=== PATIENT | female | born 1960 | race Caucasian/White ===

== ENCOUNTER 2023-12-08 17:51 | Inpatient (IN) | payer BC ==
[~2023-12-08] VITALS: Ht 165.1 cm; Wt 74.4 kg
[2023-12-08] MEDS: MORPHINE SULFATE 4 MG/ML INJ (FOR IV/IM USE) IV STA (19:27)
[2023-12-08 19:44] LABS: EOSINOPHILS % 1.6 % (0.0-5.0); HEMATOCRIT. 38.6 % (36.0-48.0); HEMOGLOBIN. 13.1 g/dL (12.0-16.0); LYMPHOCYTES % 30.7 % (20.0-50.0); MEAN CORPUSCULAR VOLUME 85.3 fL (81.0-99.0); MEAN PLATELET VOLUME 8.5 fl (7.4-10.4); MONOCYTES % 8.4 % (2.0-8.0); NEUTROPHILS % 58.3 % (40.0-76.0); PLATELET 214 x1000/uL (130-400); RED BLOOD CELL COUNT 4.52 mill/uL (4.2-5.4); WHITE BLOOD COUNT 6.4 x1000/uL (4.5-11.0)
[2023-12-08 19:49] LABS: CHLORIDE 102 mEq/L (98-107); POTASSIUM 3.6 mEq/L (3.5-5.1); SODIUM 138 mEq/L (136-145)
[2023-12-08 19:50] LABS: CALCIUM 10.7 mg/dL (8.7-10.4); CARBON DIOXIDE 23 mEq/L (21-32)
[2023-12-08 19:55] LABS: CREATININE 0.7 mg/dL (0.6-1.0); GLUCOSE 125 mg/dL (70-105); UREA NITROGEN BLOOD 13 mg/dL (9-23)
[2023-12-08 19:57] LABS: ALANINE AMINOTRANSFERASE 52 IU/L (10-49); ALBUMIN 4.9 g/dL (3.2-4.8); ASPARTATE AMINOTRANSFERASE 37 IU/L (<34); BILIRUBIN DIRECT 0.1 mg/dL (<=3.0); BILIRUBIN TOTAL 0.5 mg/dL (0.1-1.0)
[2023-12-08] MEDS: MORPHINE SULFATE 4 MG/ML INJ (FOR IV/IM USE) IV ONE (20:15)
[2023-12-08 20:29] LABS: TROPONIN I HIGH SENSITIVITY 56 ng/L (3.0-34)
[2023-12-08] MEDS: ASPIRIN 325MG TABLET PO ONE (21:00)
[2023-12-08] MEDS: IOHEXOL-300 100 ML BOTTLE ONE (21:06)
[2023-12-09 00:01] VITALS: BP 148/77; PULSE 81; RESP 18; RESP 20; TEMP 98.2
[2023-12-09] MEDS ORDERED: CLONIDINE 0.1MG TABLET PO PRN (01:45)
[2023-12-09] MEDS ORDERED: GUAIFENESIN 200MG/10ML SUGAR FREE UDC PO PRN (01:45)
[2023-12-09] MEDS ORDERED: IPRATROPIUM/ALBUTEROL 0.5-3(2.5)MG/3ML NEB HHN PRN (01:45)
[2023-12-09] MEDS ORDERED: MAGNESIUM/ALUMINUM HYDROXIDE/SIMETHICONE 30ML UDC PO PRN (01:45)
[2023-12-09] MEDS ORDERED: DEXTROSE 50% WATER 50ML SYRINGE IV PRN (01:45)
[2023-12-09] MEDS ORDERED: DOCUSATE SODIUM 100MG CAPSULE PO PRN (01:45)
[2023-12-09] MEDS ORDERED: ONDANSETRON HCL 4MG/2ML INJ IV PRN (01:45)
[2023-12-09] MEDS: BLOOD SUGAR DIAGNOSTIC STRIP TEST SCH (06:15)
[2023-12-09] MEDS: INSULIN LISPRO 100 UNITS/ML SUBCUT SCH (06:15)
[2023-12-09] MEDS ORDERED: ASPI-1497 PO (06:22)
[2023-12-09 06:43] LABS: BASOPHILS % 0.9 % (0.0-2.0); EOSINOPHILS % 0.5 % (0.0-5.0); HEMATOCRIT. 38.5 % (36.0-48.0); HEMOGLOBIN. 12.8 g/dL (12.0-16.0); LYMPHOCYTES % 33.9 % (20.0-50.0); MEAN CORPUSCULAR HGB CONC 33.3 g/dL (31.0-37.0); MEAN CORPUSCULAR VOLUME 87.1 fL (81.0-99.0); MEAN PLATELET VOLUME 8.2 fl (7.4-10.4); NEUTROPHILS % 56.7 % (40.0-76.0); PLATELET 220 x1000/uL (130-400); RED BLOOD CELL COUNT 4.41 mill/uL (4.2-5.4); WHITE BLOOD COUNT 6.1 x1000/uL (4.5-11.0)
[2023-12-09 06:56] LABS: CALCIUM 10.4 mg/dL (8.7-10.4); CHLORIDE 103 mEq/L (98-107); POTASSIUM 4.1 mEq/L (3.5-5.1); SODIUM 139 mEq/L (136-145)
[2023-12-09 06:57] LABS: CARBON DIOXIDE 28 mEq/L (21-32)
[2023-12-09 06:58] LABS: CREATINE KINASE MB FRACTION 3.1 ng/mL (0.5-3.6)
[2023-12-09 07:02] LABS: CREATININE 0.6 mg/dL (0.6-1.0); GLUCOSE 128 mg/dL (70-105); T4 FREE 1.24 ng/dL (0.89-1.76); TRIGLYCERIDE 115 mg/dL (0-150); UREA NITROGEN BLOOD 14 mg/dL (9-23)
[2023-12-09 07:03] LABS: CREATINE KINASE 97 IU/L (34-145); LDL CHOLESTEROL 89 mg/dL (5-100); THYROID STIMULATING HORMONE 2.04 uIU/mL (0.55-4.78)
[2023-12-09 07:04] LABS: CHOLESTEROL 155 mg/dL (<200); HDL CHOLESTEROL 57 mg/dL (>65)
[2023-12-09 08:00] VITALS: BP 139/70; PULSE 77; RESP 16; TEMP 98.6
[2023-12-09 08:15] LABS: TROPONIN I HIGH SENSITIVITY 264 ng/L (3.0-34)
[2023-12-09 08:16] LABS: PROTHROMBIN TIME 11.4 sec (9.6-11.0)
[2023-12-09] MEDS: AMLODIPINE 5MG TABLET PO SCH (08:19)
[2023-12-09] MEDS: ASPIRIN 81MG EC TABLET PO SCH (08:19)
[2023-12-09] MEDS: ENOXAPARIN 40MG/0.4ML SYR SUBCUT SCH (08:20)
[2023-12-09] MEDS: ACETAMINOPHEN 325MG TABLET PO PRN (10:33)
[2023-12-09 12:00] VITALS: BP 137/109; PULSE 71; RESP 20; TEMP 98.2
[2023-12-09 12:20] LABS: CLARITY URINE CLOUDY (CLEAR); COLOR URINE YELLOW (YELLOW); GLUCOSE URINE 3+ (NEGATIVE); KETONES URINE NEGATIVE (NEGATIVE); LEUKOCYTE ESTERASE URINE TRACE (NEGATIVE); NITRITE URINE NEGATIVE (NEGATIVE); OCCULT BLOOD URINE 1+ (NEGATIVE); PROTEIN URINE TRACE (NEGATIVE); SPECIFIC GRAVITY URINE 1.034 (1.005-1.030); UROBILINOGEN URINE 0.2 E.U./dL (0.2-1.0)
[2023-12-09 12:36] LABS: BACTERIA URINE 4+; RBC URINE 0-2 /hpf (0-2); SQUAMOUS EPITHELIAL CELL URINE 1+ /lpf (RARE/1+)
[2023-12-09 12:37] LABS: WBC URINE 15-25 /hpf (0-2)
[2023-12-09 13:00] LABS: CREATINE KINASE MB FRACTION 3.3 ng/mL (0.5-3.6)
[2023-12-09] MEDS: CEFTRIAXONE 2GM/50ML 50 ML IV SCH (14:38)
[2023-12-09 15:09] LABS: CREATINE KINASE MB FRACTION 3.3 ng/mL (0.5-3.6)
[2023-12-09 16:00] VITALS: BP 118/69; PULSE 70; RESP 18; TEMP 98.9
[2023-12-09 20:00] VITALS: BP 138/81; PULSE 72; RESP 19; TEMP 98.4
[2023-12-09] MEDS: FAMOTIDINE 20MG TABLET PO SCH (20:29)
[2023-12-09] MEDS: ATORVASTATIN CALCIUM 20MG TABLET PO SCH (20:29)
[2023-12-10] VITALS: BP 107/62; PULSE 70; RESP 18; TEMP 98.2
[2023-12-10 04:00] VITALS: BP 124/76; PULSE 75; RESP 20; TEMP 98.1
[2023-12-10 07:33] LABS: CARBON DIOXIDE 26 mEq/L (21-32); CHLORIDE 104 mEq/L (98-107); POTASSIUM 3.7 mEq/L (3.5-5.1); SODIUM 139 mEq/L (136-145)
[2023-12-10 07:34] LABS: HEMATOCRIT 37.6 % (36.0-48.0); HEMOGLOBIN 12.7 g/dL (12.0-16.0); MEAN CORPUSCULAR HEMOGLOBIN 28.9 pg (28.0-32.0); MEAN CORPUSCULAR HGB CONC 33.8 g/dL (31.0-37.0); MEAN CORPUSCULAR VOLUME 85.4 fL (81.0-99.0); PLATELET 207 x1000/uL (130-400); WHITE BLOOD COUNT 5.4 x1000/uL (4.5-11.0)
[2023-12-10 07:35] LABS: CALCIUM 9.9 mg/dL (8.7-10.4)
[2023-12-10 07:39] LABS: CREATININE 0.6 mg/dL (0.6-1.0)
[2023-12-10 07:40] LABS: GLUCOSE 145 mg/dL (70-105); UREA NITROGEN BLOOD 11 mg/dL (9-23)
[2023-12-10 08:00] VITALS: BP 130/76; PULSE 80; RESP 20; TEMP 98
[2023-12-10] MEDS ORDERED: CHOL400D7 PO (10:33)
[2023-12-10] MEDS ORDERED: SULF1TAB48 MT (10:33)
[2023-12-10 11:32] VITALS: BP 148/84; PULSE 74; TEMP 98.2; O2SAT 95
== END 2023-12-10 12:30 | disposition home or self-care (01) | DRG 281 ==
LOC: ER 17:51 → 3WST 22:15
PROVIDERS: ADMIT Internal Medicine; ATTEND Internal Medicine
DX: R07.89 Other chest pain (principal); N39.0 Urinary tract infection, site not specified; I21.A1 Myocardial infarction type 2; M85.80 Other specified disorders of bone density and structure, unspecified site; R74.01 Elevation of levels of liver transaminase levels; E78.5 Hyperlipidemia, unspecified; I10 Essential (primary) hypertension; E11.9 Type 2 diabetes mellitus without complications; V89.2XXA Person injured in unspecified motor-vehicle accident, traffic, initial encounter; Y92.410 Unspecified street and highway as the place of occurrence of the external cause; Y93.89 Activity, other specified; Y99.8 Other external cause status
CPT/HCPCS: 36415; 71045; 71100; 72141; 72148; 74177; 80048; 80061; 80076; 81003; 82306; 82550; 82553; 82962; 83036; 83880; 83970; 84439; 84443; 84484; 85025; 85027; 85379; 87077; 87186; 93005; 93970; 97161; 99291; J0696; J1650; J1815; J2270; Q9967